=== PATIENT | male | born 1955 | race Two or more races ===

== ENCOUNTER 2023-12-09 07:54 | Day surgery (SDC) | payer OTHER ==
[2023-12-02 11:25] LABS: HEMATOCRIT 42.9 % (39.0-48.0); HEMOGLOBIN 14.4 g/dL (13-16.00); MEAN CELL VOLUME 93.5 fL (80.0-100.00); MEAN CORPUSCULAR HEMOGLOBIN 31.3 pg (27.00-32.0); MEAN CORPUSCULAR HGB CONC 33.5 g/dl (32.0-36.0); PLATELET COUNT 195 K/uL (150-450); RED BLOOD COUNT 4.59 M/uL (4.00-6.00); RED CELL DISTRIBUTION WIDTH 13.6 % (11.5-14.5)
[2023-12-02 11:28] LABS: URINE APPEARANCE Clear; URINE BILIRRUBIN Negative (NEGATIVE); URINE BLOOD Small; URINE COLOR Yellow; URINE GLUCOSE Negative (NEGATIVE); URINE LEUKOCYTE Negative; URINE NITRATE Negative; URINE PROTEIN Negative (NEGATIVE); URINE UROBILINOGEN 0.2 E.U./dl
[2023-12-02 11:34] LABS: URINE BACTERIA 28.9 uL (0.0-1933); URINE EPITHELIAL CELLS 4.7 uL (0.0-38.8); URINE RBC 12.2 uL (0.0-20.8); URINE WBC 4.3 uL (0.0-23.2)
[2023-12-02 11:59] LABS: INR < 0.93; PARTIAL THROMBOPLASTIN TIME 27.1 SECONDS (22.0-34.0); PROTHROMBIN TIME 9.8 SECONDS (9.0-11.5)
[2023-12-02 12:07] LABS: BILIRUBIN TOTAL 0.34 mg/dL (0.3-1.2); CREATININE SERUM 0.97 mg/dL (0.70-1.30); GFR 76.96; GLOBULINA 3.3 G/DL (2.4-3.5); POTASSIUM 4.72 mEq/L (3.5-5.1); TOTAL PROTEIN 7.3 gm/dL (6.4-8.2)
[~2023-12-09 07:54] MED LIST: AMLODIPINE-OLM1 EAC2 PO
== END 2023-12-09 19:40 | disposition home or self-care (01) ==
LOC: CIR.AMB 07:54
PROVIDERS: ATTEND Otolaryngology
DX: J34.2 Deviated nasal septum (principal); J34.89 Other specified disorders of nose and nasal sinuses